=== PATIENT | female | born 1945 | race Caucasian/White ===

== ENCOUNTER → 2020-07-30 | Outpatient (CLI) | payer MEDICARE, MEDICAID ==
--- NOTE | 2020-08-06 11:34 | REP ---
CHEST X-RAY: 2-VIEWS HISTORY: Pleural effusion. COMPARISON: Chest x-ray 06/20/2020 and 08/28/2019. FINDINGS: Heart is felt to be mildly enlarged. Cardiothoracic ratio is 50.8%. Pulmonary vasculature is not increased. Pleural angles are sharp. No infiltrate is seen. There are degenerative changes in the thoracic spine. Surgical clips are noted in the upper abdomen. There is no evidence of pleural effusion. IMPRESSION: Mild cardiomegaly. Otherwise no acute disease. No significant change from comparison study. MTDD
== END ==
LOC: M CLY 11:24
PROVIDERS: ATTEND Family Medicine
DX: I51.7 Cardiomegaly (principal); M51.34 Other intervertebral disc degeneration, thoracic region; J90 Pleural effusion, not elsewhere classified; Z23 Encounter for immunization
CPT/HCPCS: 71046; 90732; G0009; G0463

== ENCOUNTER 2024-02-19 20:33 | Inpatient (IN) | payer MEDICARE, MEDICAID ==
[~2024-02-19] VITALS: Ht 149.9 cm; Wt 79.5 kg
[2024-02-19] MEDS: CARVedilol 6.25 MG TAB PO SCH (02:00)
[2024-02-19 23:50] VITALS: BP 134/62; TEMP 97; O2SAT 90
[2024-02-20] VITALS (18 sets, daily range): BP systolic 108–126; BP diastolic 52–68; TEMP 97–97.9; O2SAT 89–99
[2024-02-20] MEDS ORDERED: LANTINJ4 INJ (01:01)
[2024-02-20] MEDS ORDERED: TRAD5TAB PO (01:01)
[2024-02-20] MEDS ORDERED: AMLO1TAB24 PO (01:01)
[2024-02-20] MEDS ORDERED: CHOL100012 PO (01:01)
[2024-02-20] MEDS ORDERED: ATOR1TAB19 PO (01:01)
[2024-02-20] MEDS ORDERED: CARV6.25 PO (01:01)
[2024-02-20] MEDS ORDERED: LOSA50TA28 PO (01:01)
[2024-02-20] MEDS ORDERED: FENO48TA8 PO (01:01)
[2024-02-20] MEDS ORDERED: VITA500C24 PO (01:01)
[2024-02-20] MEDS ORDERED: HOME MED LIST COMPLETE! XX SCH (01:05)
[2024-02-20] MEDS ORDERED: GLUCOSE 4 GM CHEW PO PRN (01:10)
[2024-02-20] MEDS ORDERED: DEXTROSE 50% 50ML SYRINGE IV PRN (01:10)
[2024-02-20] MEDS ORDERED: ALBUTEROL SULFATE 2.5MG/0.5ML INH NEB SOLN NEB PRN (01:10)
[2024-02-20] MEDS ORDERED: GLUCAGON INJ 1MG VIAL SC PRN (01:10)
[2024-02-20] MEDS: IPRATROPIUM 0.5MG/ALBUTEROL 2.5MG INH SOL UD 3ML (DUONEB) NEB SCH (01:48)
[2024-02-20] MEDS: LOSARTAN 50MG TABLET PO SCH (02:50)
[2024-02-20] MEDS: cefTRIAXone SOD 1 GM in D5W MINI-BAG PLUS 50 ML IV SCH (02:50)
[2024-02-20] MEDS: LEVEMIR (INSULIN DETEMIR) 1 UNITS/0.01ML SC SCH (03:18)
[2024-02-20] MEDS: AZITHROMYCIN INJ 500 MG, VIAL MATE ADAPTER 1 EACH in D5W 250 ML IV SCH (04:38)
[2024-02-20 05:56] LABS: CREATININE,RANDOM URINE 93.4 MG/DL
[2024-02-20] MEDS ORDERED: INSULIN LISPRO (NovoLOG) PER UNIT SC SCH (06:00)
[2024-02-20 06:02] LABS: TOTAL PROTEIN,RANDOM URINE 225.7 MG/DL (0.0-14.0)
[2024-02-20 06:24] LABS: ALBUMIN 2.2 G/DL (3.2-5.2); BILIRUBIN,TOTAL 0.4 MG/DL (0.3-1.2); CALCIUM LEVEL 7.9 MG/DL (8.3-10.6); CREATININE FOR GFR 2.43 MG/DL (0.55-1.30); GLOMERULAR FILTRATION RATE 20.4 (>39); TOTAL PROTEIN 5.1 G/DL (5.7-8.2)
[2024-02-20 07:05] LABS: BASO % 0.3 % (0.0-1.0); EOS % 0.4 % (0.0-3.0); HEMATOCRIT 33.4 % (36.0-47.0); HEMOGLOBIN 9.9 g/dl (12.0-15.5); LYMPH # 0.9 10^3/uL (1.5-5.0); LYMPH % 8.5 % (24.0-44.0); MEAN CORPUSCULAR HEMOGLOBIN 27.5 pg (27.0-33.0); MEAN CORPUSCULAR HGB CONC 29.6 g/dl (32.0-36.5); MEAN CORPUSCULAR VOLUME 92.8 fl (80.0-96.0); MONO # 0.8 10^3/uL (0.0-0.8); MONO % 7.8 % (2.0-8.0); NEUTROPHILS # 8.6 10^3/uL (1.5-8.5); NEUTROPHILS % 82.3 % (36.0-66.0); PLATELET COUNT, AUTOMATED 287 10^3/uL (150-450); WHITE BLOOD COUNT 10.4 10^3/uL (4.0-10.0)
[2024-02-20 07:45] LABS: INR 1.29; PARTIAL THROMBOPLASTIN TIME 28.7 SECONDS (24.8-34.2); PROTHROMBIN TIME 15.7 SECONDS (12.5-14.5)
[2024-02-20] MEDS: ATORVASTATIN 10 MG TAB PO SCH (08:40)
[2024-02-20] MEDS: amLODIPine 5 MG TAB PO SCH (08:40)
[2024-02-20] MEDS: INSULIN LISPRO (NovoLOG) PER UNIT SC SCH ×2 (08:42→21:00)
[2024-02-20] MEDS ORDERED: HEPARIN SOD (PORCINE) 5000UNITS/ML 1ML VIAL/SYRINGE SC SCH (09:00)
[2024-02-20] MEDS: FUROSEMIDE 40MG/4ML VIAL IV SCH (11:25)
[2024-02-20] MEDS: NYSTATIN 100,000 UNITS/GM TOPICAL PWD 15GM TOP SCH (11:38)
[2024-02-20] MEDS: HEPARIN SOD (PORCINE) 5000UNITS/ML 1ML VIAL/SYRINGE SC SCH (11:39)
[2024-02-20 12:58] LABS: PERCENT SATURATION 5.6 % (13.2-45.0)
[2024-02-20 14:30] LABS: CHOLESTEROL RISK RATIO 2.47 (<5); HDL CHOLESTEROL 35.1 MG/DL (>40); LDL CHOLESTEROL 30.3 MG/DL (<100); NON-HDL-C 51.9 MG/DL
[2024-02-20 15:42] LABS: PROCALCITONIN 0.12 ng/ml
[2024-02-20 16:17] LABS: HEMOGLOBIN A1c 5.2 % (4.0-6.0)
[2024-02-20] MEDS: FENOFIBRATE 48MG TABLET (TRICOR) PO SCH (21:11)
[2024-02-21] VITALS (21 sets, daily range): BP systolic 116–161; BP diastolic 63–72; TEMP 97.2–97.7; O2SAT 85–98
[2024-02-21 06:08] LABS: HEMATOCRIT 33.5 % (36.0-47.0); HEMOGLOBIN 10.1 g/dl (12.0-15.5); MEAN CORPUSCULAR HEMOGLOBIN 28.1 pg (27.0-33.0); MEAN CORPUSCULAR HGB CONC 30.1 g/dl (32.0-36.5); MEAN CORPUSCULAR VOLUME 93.1 fl (80.0-96.0); PLATELET COUNT, AUTOMATED 303 10^3/uL (150-450); WHITE BLOOD COUNT 10.6 10^3/uL (4.0-10.0)
[2024-02-21 06:35] LABS: ALBUMIN 2.3 G/DL (3.2-5.2); BILIRUBIN,TOTAL 0.3 MG/DL (0.3-1.2); CALCIUM LEVEL 8.5 MG/DL (8.3-10.6); CREATININE FOR GFR 2.77 MG/DL (0.55-1.30); GLOMERULAR FILTRATION RATE 17.6 (>39); POTASSIUM SERUM 5.3 MMOL/L (3.5-5.1); TOTAL PROTEIN 5.3 G/DL (5.7-8.2)
[2024-02-21] MEDS ORDERED: DEXTROSE 50% 50ML SYRINGE IV STA (06:40)
[2024-02-21] MEDS: SOD POLYSTYRENE SULFONATE SUSP 15GM 60ML UD PO ONE (09:00)
[2024-02-21] MEDS: FUROSEMIDE 100MG/10ML VIAL IV SCH (09:00)
[2024-02-21] MEDS: AZITHROMYCIN 250MG TABLET PO SCH (09:00)
[2024-02-21 12:22] LABS: CALCIUM LEVEL 8.8 MG/DL (8.3-10.6); CREATININE FOR GFR 2.78 MG/DL (0.55-1.30); GLOMERULAR FILTRATION RATE 17.5 (>39); POTASSIUM SERUM 5.3 MMOL/L (3.5-5.1)
[2024-02-21] MEDS: LEVEMIR (INSULIN DETEMIR) 1 UNITS/0.01ML SC SCH (21:15)
[2024-02-22] VITALS (18 sets, daily range): BP systolic 115–158; BP diastolic 56–70; TEMP 97–98.4; O2SAT 88–98
[2024-02-22 10:10] LABS: HEMATOCRIT 35.2 % (36.0-47.0); HEMOGLOBIN 10.8 g/dl (12.0-15.5); MEAN CORPUSCULAR HEMOGLOBIN 27.9 pg (27.0-33.0); MEAN CORPUSCULAR HGB CONC 30.7 g/dl (32.0-36.5); PLATELET COUNT, AUTOMATED 327 10^3/uL (150-450); RED BLOOD COUNT 3.87 10^6/uL (4.00-5.40); WHITE BLOOD COUNT 9.8 10^3/uL (4.0-10.0)
[2024-02-22 11:00] LABS: ALBUMIN 2.4 G/DL (3.2-5.2); CALCIUM LEVEL 8.5 MG/DL (8.3-10.6); CREATININE FOR GFR 2.63 MG/DL (0.55-1.30); GLOMERULAR FILTRATION RATE 18.7 (>39); PHOSPHORUS LEVEL 6.2 MG/DL (2.4-5.1); POTASSIUM SERUM 4.1 MMOL/L (3.5-5.1)
[2024-02-22] MEDS: CALCIUM ACETATE 667MG GELCAP PO SCH (17:20)
[2024-02-22] MEDS: CEFDINIR 300 MG CAP (OMNICEF) PO SCH (20:40)
[2024-02-23] VITALS (23 sets, daily range): BP systolic 117–148; BP diastolic 57–81; TEMP 97.1–98.4; O2SAT 88–97
[2024-02-23 06:06] LABS: ALBUMIN 2.2 G/DL (3.2-5.2); CALCIUM LEVEL 8.2 MG/DL (8.3-10.6); CREATININE FOR GFR 2.5 MG/DL (0.55-1.30); GLOMERULAR FILTRATION RATE 19.8 (>39); MAGNESIUM LEVEL 1.5 MG/DL (1.8-2.4); PHOSPHORUS LEVEL 6.2 MG/DL (2.4-5.1); POTASSIUM SERUM 4.2 MMOL/L (3.5-5.1)
[2024-02-23] MEDS: MAG SULF 1GM/100ML (MAG RUN) 1 GM in IV 1 EA IV SCH (06:56)
[2024-02-23] MEDS: CALCIUM ACETATE 667MG GELCAP PO SCH (12:01)
[2024-02-24] VITALS (30 sets, daily range): BP systolic 124–151; BP diastolic 58–79; TEMP 97.4–98.9; O2SAT 85–99
[2024-02-24] MEDS: LEVEMIR (INSULIN DETEMIR) 1 UNITS/0.01ML SC SCH (08:17)
[2024-02-24 08:24] LABS: BASO # 0.1 10^3/uL (0.0-0.2); BASO % 0.8 % (0.0-1.0); EOS # 0.3 10^3/uL (0.0-0.5); EOS % 3.6 % (0.0-3.0); HEMATOCRIT 33.7 % (36.0-47.0); HEMOGLOBIN 10.9 g/dl (12.0-15.5); LYMPH # 0.8 10^3/uL (1.5-5.0); LYMPH % 10.8 % (24.0-44.0); MEAN CORPUSCULAR HEMOGLOBIN 28.2 pg (27.0-33.0); MEAN CORPUSCULAR HGB CONC 32.3 g/dl (32.0-36.5); MEAN CORPUSCULAR VOLUME 87.3 fl (80.0-96.0); MONO # 0.7 10^3/uL (0.0-0.8); MONO % 9.1 % (2.0-8.0); NEUTROPHILS # 5.6 10^3/uL (1.5-8.5); NEUTROPHILS % 75.2 % (36.0-66.0); PLATELET COUNT, AUTOMATED 319 10^3/uL (150-450); RED BLOOD COUNT 3.86 10^6/uL (4.00-5.40); WHITE BLOOD COUNT 7.4 10^3/uL (4.0-10.0)
[2024-02-24 09:05] LABS: CALCIUM LEVEL 8.9 MG/DL (8.3-10.6); CREATININE FOR GFR 2.44 MG/DL (0.55-1.30); GLOMERULAR FILTRATION RATE 20.3 (>39)
[2024-02-24] MEDS: FERRIC CARBOXYMALTOSE INJ 750 MG, VIAL MATE ADAPTER 1 EACH in NS 250 ML IV ONE (14:55)
[2024-02-25] VITALS (12 sets, daily range): BP systolic 101–152; BP diastolic 52–69; TEMP 97.4–98.8; O2SAT 87–96
[2024-02-25 06:06] LABS: CALCIUM LEVEL 9.1 MG/DL (8.3-10.6); CREATININE FOR GFR 2.4 MG/DL (0.55-1.30); GLOMERULAR FILTRATION RATE 20.7 (>39); MAGNESIUM LEVEL 1.9 MG/DL (1.8-2.4); POTASSIUM SERUM 4.2 MMOL/L (3.5-5.1)
[2024-02-25] MEDS: TORSEMIDE 100 MG TAB PO SCH (09:08)
[2024-02-26 05:10] VITALS: BP 139/69; TEMP 99; O2SAT 93
[2024-02-26 06:58] LABS: CALCIUM LEVEL 8.6 MG/DL (8.3-10.6); CREATININE FOR GFR 2.39 MG/DL (0.55-1.30); GLOMERULAR FILTRATION RATE 20.8 (>39); MAGNESIUM LEVEL 1.5 MG/DL (1.8-2.4); PHOSPHORUS LEVEL 3.6 MG/DL (2.4-5.1); POTASSIUM SERUM 3.9 MMOL/L (3.5-5.1)
[2024-02-26] MEDS: MAG SULF 1GM/100ML (MAG RUN) 1 GM in IV 1 EA IV SCH (08:25)
[2024-02-26] MEDS: MAGNESIUM OXIDE 400MG TAB (MAG-OX) PO SCH (08:25)
[2024-02-26 09:00] VITALS: O2SAT 94
[2024-02-26] MEDS: FERRIC CARBOXYMALTOSE INJ 750 MG, VIAL MATE ADAPTER 1 EACH in NS 250 ML IV ONE (12:58)
[2024-02-26 13:00] VITALS: BP 130/87; TEMP 98.6; O2SAT 93
[2024-02-26 13:42] VITALS: BP 132/86; TEMP 97.9; O2SAT 96
[2024-02-26 20:34] VITALS: BP 137/67; TEMP 97.9; O2SAT 93
[2024-02-27 04:30] VITALS: BP 127/67; TEMP 98.1; O2SAT 94
[2024-02-27 06:41] LABS: CALCIUM LEVEL 8.9 MG/DL (8.3-10.6); CREATININE FOR GFR 2.32 MG/DL (0.55-1.30); GLOMERULAR FILTRATION RATE 21.6 (>39); POTASSIUM SERUM 4.3 MMOL/L (3.5-5.1)
[2024-02-27 14:00] VITALS: BP 113/53; TEMP 97.5; O2SAT 93
[2024-02-27] MEDS: CARVedilol 12.5 MG TAB PO SCH (20:21)
[2024-02-28 05:30] VITALS: BP 117/59; TEMP 98.8; O2SAT 93
[2024-02-28 07:28] LABS: CALCIUM LEVEL 8.7 MG/DL (8.3-10.6); CREATININE FOR GFR 2.49 MG/DL (0.55-1.30); GLOMERULAR FILTRATION RATE 19.9 (>39); POTASSIUM SERUM 4.2 MMOL/L (3.5-5.1)
[2024-02-28] MEDS ORDERED: APIXABAN 2.5 MG TAB (ELIQUIS) PO SCH (09:00)
[2024-02-28 14:00] VITALS: BP 102/58; TEMP 97.5; O2SAT 90
[2024-02-28 19:37] VITALS: BP 108/63; TEMP 97.5; O2SAT 94
[2024-02-28] MEDS: APIXABAN 5 MG TAB (ELIQUIS) PO SCH (21:02)
[2024-02-29 06:00] VITALS: BP 129/45; TEMP 98.1; O2SAT 94
[2024-02-29 08:44] LABS: CALCIUM LEVEL 8.8 MG/DL (8.3-10.6); CREATININE FOR GFR 2.71 MG/DL (0.55-1.30); MAGNESIUM LEVEL 2.3 MG/DL (1.8-2.4); POTASSIUM SERUM 4.3 MMOL/L (3.5-5.1)
[2024-02-29 15:00] VITALS: BP 138/52; TEMP 97.7; O2SAT 92
[2024-02-29 18:49] LABS: ALBUMIN 2.6 G/DL (3.2-5.2); CALCIUM LEVEL 8.8 MG/DL (8.3-10.6); CREATININE FOR GFR 2.83 MG/DL (0.55-1.30); GLOMERULAR FILTRATION RATE 17.1 (>39); PHOSPHORUS LEVEL 2.9 MG/DL (2.4-5.1); POTASSIUM SERUM 4.6 MMOL/L (3.5-5.1)
[2024-02-29 21:12] VITALS: BP 133/50; TEMP 98.1; O2SAT 92
[2024-03-01 06:00] VITALS: BP 133/51; TEMP 98.6; O2SAT 88
[2024-03-01 07:47] LABS: BASO # 0.1 10^3/uL (0.0-0.2); BASO % 0.8 % (0.0-1.0); EOS # 0.2 10^3/uL (0.0-0.5); EOS % 2.5 % (0.0-3.0); HEMATOCRIT 30.1 % (36.0-47.0); HEMOGLOBIN 9.8 g/dl (12.0-15.5); LYMPH # 1.1 10^3/uL (1.5-5.0); LYMPH % 11.2 % (24.0-44.0); MEAN CORPUSCULAR HEMOGLOBIN 27.7 pg (27.0-33.0); MEAN CORPUSCULAR HGB CONC 32.6 g/dl (32.0-36.5); MONO # 1.1 10^3/uL (0.0-0.8); NEUTROPHILS % 73.6 % (36.0-66.0); PLATELET COUNT, AUTOMATED 271 10^3/uL (150-450); RED BLOOD COUNT 3.54 10^6/uL (4.00-5.40); WHITE BLOOD COUNT 9.6 10^3/uL (4.0-10.0)
[2024-03-01 08:13] LABS: CALCIUM LEVEL 8.4 MG/DL (8.3-10.6); CREATININE FOR GFR 2.97 MG/DL (0.55-1.30); GLOMERULAR FILTRATION RATE 16.2 (>39); MAGNESIUM LEVEL 2.3 MG/DL (1.8-2.4); POTASSIUM SERUM 4.1 MMOL/L (3.5-5.1)
[2024-03-01 12:37] LABS: PH BODY FLUID > 7.800 UNITS (NOT ESTABLISHED); SOURCE, BODY FLUID pH PLEURAL
[2024-03-01 12:49] LABS: AMYLASE, BODY FLUID 35 U/L (NOT ESTABLISHED); SOURCE, BODY FLUID AMYLASE PLEURAL; SOURCE, BODY FLUID GLUCOSE PLEURAL
[2024-03-01 12:50] LABS: LDH, BODY FLUID 71 U/L (NOT ESTABLISHED); SOURCE, BODY FLUID LDH PLEURAL
[2024-03-01 12:51] LABS: SOURCE, BODY FLUID TOT PROTEIN PLEURAL; TOTAL PROTEIN, BODY FLUID < 2.0 G/DL (NOT ESTABLISHED)
[2024-03-01 13:09] LABS: APPEARANCE, BODY FLUID HAZY (CLEAR); PLEURAL FL COLOR PALE YELLOW (COLORLESS); SOURCE, BODY FLUID PLEURAL
[2024-03-01 14:30] VITALS: BP 130/51; TEMP 97.9; O2SAT 91
[2024-03-01 21:30] VITALS: BP_SYST 125; BP_SYST 126; BP_DIAS 46; BP_DIAS 60; TEMP 98.6; O2SAT 94; O2SAT 95
[2024-03-02] MEDS: diphenhydrAMINE 25MG CAP PO ONE (02:17)
[2024-03-02 05:10] VITALS: BP 136/46; TEMP 98.2; O2SAT 89
[2024-03-02 05:37] LABS: BASO # 0.1 10^3/uL (0.0-0.2); BASO % 0.5 % (0.0-1.0); EOS # 0.3 10^3/uL (0.0-0.5); EOS % 2.3 % (0.0-3.0); HEMATOCRIT 31.5 % (36.0-47.0); HEMOGLOBIN 9.8 g/dl (12.0-15.5); LYMPH # 1.2 10^3/uL (1.5-5.0); LYMPH % 10.7 % (24.0-44.0); MEAN CORPUSCULAR HEMOGLOBIN 27.1 pg (27.0-33.0); MEAN CORPUSCULAR HGB CONC 31.1 g/dl (32.0-36.5); MEAN CORPUSCULAR VOLUME 87.3 fl (80.0-96.0); MONO # 1.1 10^3/uL (0.0-0.8); MONO % 9.7 % (2.0-8.0); NEUTROPHILS # 8.2 10^3/uL (1.5-8.5); NEUTROPHILS % 76.2 % (36.0-66.0); PLATELET COUNT, AUTOMATED 305 10^3/uL (150-450); RED BLOOD COUNT 3.61 10^6/uL (4.00-5.40); WHITE BLOOD COUNT 10.8 10^3/uL (4.0-10.0)
[2024-03-02 06:10] LABS: CALCIUM LEVEL 8.4 MG/DL (8.3-10.6); CREATININE FOR GFR 3.11 MG/DL (0.55-1.30); GLOMERULAR FILTRATION RATE 15.4 (>39); MAGNESIUM LEVEL 2.4 MG/DL (1.8-2.4); POTASSIUM SERUM 4.1 MMOL/L (3.5-5.1)
[2024-03-02 14:00] VITALS: BP 116/45; TEMP 97.5; O2SAT 95
[2024-03-02 22:00] VITALS: BP 137/49; TEMP 98.6; O2SAT 94
[2024-03-03 06:00] VITALS: BP 135/47; TEMP 98.1; O2SAT 93
[2024-03-03 08:15] LABS: BASO # 0.1 10^3/uL (0.0-0.2); BASO % 0.7 % (0.0-1.0); EOS # 0.3 10^3/uL (0.0-0.5); EOS % 2.7 % (0.0-3.0); HEMATOCRIT 31.1 % (36.0-47.0); HEMOGLOBIN 10.2 g/dl (12.0-15.5); LYMPH # 1.4 10^3/uL (1.5-5.0); MEAN CORPUSCULAR HGB CONC 32.8 g/dl (32.0-36.5); MEAN CORPUSCULAR VOLUME 85.4 fl (80.0-96.0); MONO % 9.1 % (2.0-8.0); NEUTROPHILS % 73.5 % (36.0-66.0); PLATELET COUNT, AUTOMATED 309 10^3/uL (150-450); RED BLOOD COUNT 3.64 10^6/uL (4.00-5.40); WHITE BLOOD COUNT 10.9 10^3/uL (4.0-10.0)
[2024-03-03 08:35] LABS: CALCIUM LEVEL 8.5 MG/DL (8.3-10.6); POTASSIUM SERUM 4.3 MMOL/L (3.5-5.1)
[2024-03-03 14:00] VITALS: BP 132/47; TEMP 97.5; TEMP 98.1; O2SAT 93
[2024-03-03] MEDS: BUMETANIDE 1 MG TAB PO ONE (14:13)
[2024-03-03 20:34] LABS: TOTAL PROTEIN 24 HOUR URINE 941.6 MG/24HR (50-80)
[2024-03-03 22:00] VITALS: BP 130/48; TEMP 98.1; O2SAT 95
[2024-03-04 05:26] VITALS: BP 135/49; TEMP 98.4; O2SAT 93
[2024-03-04 06:04] LABS: BASO # 0.1 10^3/uL (0.0-0.2); BASO % 0.9 % (0.0-1.0); EOS # 0.4 10^3/uL (0.0-0.5); EOS % 3.2 % (0.0-3.0); HEMATOCRIT 32.2 % (36.0-47.0); HEMOGLOBIN 10.5 g/dl (12.0-15.5); LYMPH # 1.5 10^3/uL (1.5-5.0); LYMPH % 12.2 % (24.0-44.0); MEAN CORPUSCULAR HEMOGLOBIN 28.1 pg (27.0-33.0); MEAN CORPUSCULAR HGB CONC 32.6 g/dl (32.0-36.5); MEAN CORPUSCULAR VOLUME 86.1 fl (80.0-96.0); MONO # 1.1 10^3/uL (0.0-0.8); NEUTROPHILS # 9.1 10^3/uL (1.5-8.5); NEUTROPHILS % 73.5 % (36.0-66.0); PLATELET COUNT, AUTOMATED 344 10^3/uL (150-450); RED BLOOD COUNT 3.74 10^6/uL (4.00-5.40); WHITE BLOOD COUNT 12.4 10^3/uL (4.0-10.0)
[2024-03-04 06:27] LABS: CALCIUM LEVEL 8.7 MG/DL (8.3-10.6); CREATININE FOR GFR 3.26 MG/DL (0.55-1.30); GLOMERULAR FILTRATION RATE 14.6 (>39); POTASSIUM SERUM 4.7 MMOL/L (3.5-5.1)
[2024-03-04] MEDS: BUMETANIDE 1 MG TAB PO SCH (08:00)
[2024-03-04 14:00] VITALS: BP 115/45; TEMP 97.7; O2SAT 93
[2024-03-04 15:14] LABS: CREATININE 24 HOUR, URINE 293.9 MG/24HR (600-1800); CREATININE, URINE 33.4 MG/DL
[2024-03-04 21:15] VITALS: BP 113/39; TEMP 97.9; O2SAT 95
[2024-03-05 05:56] VITALS: BP 130/60; TEMP 97.9; O2SAT 95
[2024-03-05 09:00] VITALS: BP 113/36
[2024-03-05] MEDS ORDERED: CARV12.5 PO (10:55)
[2024-03-05] MEDS ORDERED: ELIQ5TAB PO (10:55)
[2024-03-05] MEDS ORDERED: BUME1TAB3 PO (10:55)
== END 2024-03-05 14:41 | disposition home or self-care (01) | DRG 193 ==
LOC: M PCU 23:47 → M MSPAV 02-25 16:03
PROVIDERS: ADMIT Internal Medicine; ATTEND Internal Medicine Nephrology
PROC: B246ZZZ Ultrasonography of Right and Left Heart (ICD-10-PCS; 2024-02-20)
PROC: 0W9B3ZZ Drainage of Left Pleural Cavity, Percutaneous Approach (ICD-10-PCS; principal; 2024-03-01 13:00)
DX: J18.0 Bronchopneumonia, unspecified organism (principal); J96.01 Acute respiratory failure with hypoxia; I50.33 Acute on chronic diastolic (congestive) heart failure; J91.8 Pleural effusion in other conditions classified elsewhere; N18.4 Chronic kidney disease, stage 4 (severe); N17.9 Acute kidney failure, unspecified; I31.39 Other pericardial effusion (noninflammatory); I13.0 Hypertensive heart and chronic kidney disease with heart failure and stage 1 through stage 4 chronic kidney disease, or unspecified chronic kidney disease; E87.1 Hypo-osmolality and hyponatremia; D50.9 Iron deficiency anemia, unspecified; Z66 Do not resuscitate; E11.22 Type 2 diabetes mellitus with diabetic chronic kidney disease; E87.6 Hypokalemia; E83.42 Hypomagnesemia; E83.52 Hypercalcemia; E78.2 Mixed hyperlipidemia; I70.0 Atherosclerosis of aorta; I27.20 Pulmonary hypertension, unspecified; R19.7 Diarrhea, unspecified; I48.0 Paroxysmal atrial fibrillation; M19.90 Unspecified osteoarthritis, unspecified site; E11.21 Type 2 diabetes mellitus with diabetic nephropathy; I35.0 Nonrheumatic aortic (valve) stenosis; I35.1 Nonrheumatic aortic (valve) insufficiency; E87.5 Hyperkalemia; D63.8 Anemia in other chronic diseases classified elsewhere; E83.39 Other disorders of phosphorus metabolism; Z90.49 Acquired absence of other specified parts of digestive tract; Z79.4 Long term (current) use of insulin; Z79.899 Other long term (current) drug therapy